=== PATIENT | male | born 1960 | race Caucasian/White ===

== ENCOUNTER 2023-12-15 22:08 | Emergency (ER) | payer OTHER, SELFPAY ==
[2023-12-15 22:10] VITALS: BP 153/75; PULSE 101; RESP 14; TEMP 36.7; O2SAT 95; BMI 30.2
[2023-12-15 22:14] VITALS: BP 153/75; PULSE 86; RESP 16; O2SAT 95
[2023-12-15] MEDS: KETOROLAC 30 MG/ML VIAL 15 MG IV (22:26)
--- NOTE | 2023-12-15 22:27 | ED_ITS ---
HPI - Fall General Chief Complaint: Trauma Stated Complaint: rt knee injury Time Seen by Provider: 12/15/23 22:26 Source: patient Mode of arrival: Wheelchair History of Present Illness HPI Narrative: Patient 63-year-old male presenting today as mechanical fall. He states that he was on about an 8 [address] [place] rock kind of on a ledge when he actually fell forward onto his knee. He did not hit his head he did not lose consciousness he has no neck pain thought he might have had some back pain. He has been ambulating he has significant left knee pain but is weight-bearing. Not on anticoagulation or antiplatelet medication. Related Data Home Medications Medication Instructions Recorded Confirmed mupirocin 2 applic topical .once a day 10/14/20 10/14/20 omeprazole magnesium 20 mg 20 mg PO DAILY 10/14/20 10/14/20 tablet,delayed release (Prilosec OTC) propranolol 60 mg capsule,24 60 mg PO DAILY 10/14/20 10/14/20 hr,extended release sertraline 25 mg tablet 25 mg PO DAILY 10/14/20 10/14/20 tizanidine 4 mg capsule 4 mg PO BEDTIME 10/14/20 10/14/20 Previous Rx's Medication Instructions Recorded hydrocodone 5 mg-acetaminophen 325 1 tab PO Q6H PRN pain #10 tabs 12/15/23 mg tablet Allergies Allergy/AdvReac Type Severity Reaction Status Date / Time No Known Drug Allergies Allergy Verified 10/14/20 11:56 Patient History Social History Smoking Status: Never smoker Smoking Status: Never smoker alcohol intake frequency: a few times a week Substance Use Type: marijuana Exam Initial Vital Signs Initial Vital Signs: Vital Signs Temperature 98.1 F 12/15/23 22:10 Pulse Rate 101 H 12/15/23 22:10 Respiratory Rate 14 12/15/23 22:10 Blood Pressure 153/75 H 12/15/23 22:10 Pulse Oximetry 95 12/15/23 22:10 Oxygen Delivery Method Room Air 12/15/23 22:10 GENERAL: Alert pleasant 63-year-old male HEENT: Head normocephalic,, EOMI, pupils reactive, face symmetric, NECK: Supple, full range of motion, no step-offs, nontender on vertebrae CARDIOVASCULAR: Regular rate and rhythm without murmurs, rubs or gallops. RESPIRATORY: Breath sounds equal bilaterally, no wheezes rales or rhonchi. No crepitations, no subcutaneous air, chest is nontender, no signs of trauma ABDOMEN: Soft, nontender. Normoactive bowel sounds all 4 quadrants. No guarding or rebound. BACK: Nontender vertebrae, no step-offs, no contusions PELVIS: stable. EXTREMITIES: Normal range of motion, no clubbing or edema. Right upper extremity: [Within normal limits] Left upper extremity: Upper arm abrasion elbow is stable no epicondyle tenderness full flexion-extension shoulder has full range of motion abduction and adduction Right lower extremity: [Within normal limits] Left lower extremity: Left knee effusion with superficial abrasions able to flex and extend stable knee distal pedal pulse intact NEUROLOGICAL: Cranial nerves II through XII grossly intact. Normal gait and speech. SKIN: Warm, dry, no petechiae, no rashes or lesions, no contusions or ecchymosis Course Orders Ordered: ED Orders 12/15/23 22:26 Chest [XR chest 2V] Stat XR knee LT 3V Stat Discontinued Medications Hydrocodone Bitart/Acetaminophen (Hydrocodone/Acet 5/325 Prepack) 1 bottle MISC DIRECTED ONE Stop: 12/15/23 23:27 Last Admin: 12/15/23 23:58 Dose: 1 bottle Documented By: YADIEL Ketorolac Tromethamine (Ketorolac 30 Mg/Ml Vial) 15 mg IV NOW ONE Stop: 12/15/23 22:15 Last Admin: 12/15/23 22:26 Dose: 15 mg Documented By: YADIEL Vital Signs Vital signs: Vital Signs - 8 hr 12/15/23 22:10 Temperature 98.1 F Pulse Rate 101 H Respiratory Rate 14 Blood Pressure 153/75 H Pulse Oximetry 95 Oxygen Delivery Method Room Air MDM - Fall Imaging Data Chest x-ray: Radiologist's Impression: PROCEDURE: XR CHEST 2V INDICATIONS: fall TECHNIQUE: 2 views of the chest were acquired. COMPARISON: None. FINDINGS: Surgical changes and devices: None. Lungs and pleura: Lungs are clear. No pleural effusions or pneumothorax. Mediastinum: Mediastinal contours are normal. Heart size is normal. Bones and chest wall: No suspicious bony abnormalities. Soft tissues appear unremarkable. IMPRESSION: No acute cardiopulmonary abnormality is seen. Dictated by: Jose White M.D. on 12/15/2023 at 23:02 Extremity x-ray #1: Radiologist's Impression: PROCEDURE: XR KNEE LT 3V INDICATIONS: fall TECHNIQUE: 3 views of the knee were acquired. COMPARISON: None. FINDINGS: Bones: No fractures or dislocations. No suspicious bony lesions. Soft tissues: No joint effusion. No suspicious soft tissue calcifications. Prominent prepatellar soft tissue thickening. IMPRESSION: No acute bony abnormality or significant effusion. Posttraumatic prominent soft tissue thickening the prepatellar region. This may represent a hematoma Dictated by: Jose White M.D. on 12/15/2023 at 23:03 [facility] Narrative Medical decision making narrative: Patient 63 all after he fell about 8 ft. He landed forward on his knee. No head injury or loss of consciousness not on any sort of antiplatelet anticoagula tion medication. He is obvious left knee effusion and abrasions, Injury happened a few hours ago he is weight-bearing. No nausea vomiting or numbness or tingling. Imaging has been reviewed left knee does show effusion but no fracture and chest x-ray is negative He has given a knee immobilizer along with crutches Discharge Plan Departure Patient Disposition: Home Clinical Impression: Effusion of knee Instructions: DI for Trauma Activity Restrictions/Additional Instructions: *You have been diagnosed with left knee effusion *What to do: At this time exposure need to be swollen for about a week or so. Elevate and ice as often as possible. Wear knee immobilizer as needed weightbear as tolerated. You may require further evaluation such as an MRI if you continue to have symptoms. *Continue to take medications as directed Motrin 600 mg every 6 hours for mild to moderate pain Alba 1 tablet every 6 hours if needed for severe pain *Follow up with your primary care provider in 2-3 days or call [phone] *Return to ER if you should have increased pain swelling redness fever or any new, worsening or concerning symptoms CONTROLLED SUBSTANCE DISCHARGE (Narcotoic/benzodiazepine/Flexeril/Phenergan) 1. You have been prescribed narcotic medications, it does have acetaminophen/Tylenol/paracetamol in it, DO NOT TAKE MORE THAN 4,00mg in 24 hours of Tylenol. TRAMADOL DOES NOT CONTAIN TYLENOL 2. Please understand that we cannot provide further refills of narcotics, benzodiazepines or controlled substances through the ED and her pain management will need to be through your provider. 3. While on these medications you cannot drive or operate heavy machinery. 4. You cannot sign legal documents or perform any duties such as this. 5. As long as you're taking opiate pain medications he should also be taking a stool softener such as Colace, Dulcolax, MiraLAX or prune juice, to help avoid constipation. Prescriptions: New hydrocodone-acetaminophen 5-325 mg tablet 1 tab PO Q6H PRN (Reason: pain) Qty: 10 0RF No Action omeprazole magnesium [Prilosec OTC] 20 mg tablet,delayed release (DR/EC) 20 mg PO DAILY tizanidine 4 mg capsule 4 mg PO BEDTIME mupirocin 2 applic topical .once a day propranolol 60 mg capsule,extended release 24 hr 60 mg PO DAILY sertraline 25 mg tablet 25 mg PO DAILY Referrals: Sully Young PA-C [Primary Care Provider] - Stand Alone Forms: Patient Portal/API
[2023-12-15] MEDS: HYDROCODONE/ACET 5/325 PREPACK 1 BOTTLE MISC (23:58)
== END 2023-12-16 00:11 | disposition home or self-care (01) ==
PROVIDERS: Emergency Provider Emergency Medicine; PCP Physician Assistant
DX: M25.462 Effusion, left knee (principal); W17.89XA Other fall from one level to another, initial encounter
CPT/HCPCS: 71046; 73562; 96374; 99284; J1885